=== PATIENT | male | born 1960 | race Caucasian/White ===

== ENCOUNTER 2021-01-05 13:35 | Emergency (ER) | payer OTHER ==
[~2021-01-05] VITALS: Ht 175.3 cm; Wt 79.9 kg
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
[2021-01-05] MEDS ORDERED: HYDROmorphone 1 MG/ML, 1ML INJ ONE (14:03)
[2021-01-05] MEDS ORDERED: ONDANSETRON 2MG/ML, 2ML ONE (14:03)
[2021-01-05] MEDS ORDERED: ONDANSETRON ODT 4 MG ONE (14:04)
--- NOTE | 2021-01-05 14:25 | NUR ---
PT GONE TO XRAY
[2021-01-05] MEDS ORDERED: HYDROmorphone 2 MG/ML, 1ML IM ONE (14:30)
[2021-01-05] MEDS ORDERED: ONDANSETRON ODT 4 MG PO ONE (14:30)
[2021-01-05 15:26] VITALS: BP 104/79
== END 2021-01-05 15:56 | disposition home or self-care (01) ==
LOC: ED 15:08
DX: S20.211A Contusion of right front wall of thorax, initial encounter (principal); F17.200 Nicotine dependence, unspecified, uncomplicated; V27.0XXA Motorcycle driver injured in collision with fixed or stationary object in nontraffic accident, initial encounter; Y93.89 Activity, other specified; Y92.410 Unspecified street and highway as the place of occurrence of the external cause; Y99.8 Other external cause status
CPT/HCPCS: 71101; 96372; 99283; J1170; Q0162